=== PATIENT | male | born 1995 | race Caucasian/White ===

== ENCOUNTER 2017-08-19 15:52 | Emergency (ER) | payer OTHER ==
[~2017-08-19] VITALS: Ht 180.3 cm; Wt 106.5 kg
[2017-08-19 16:32] LABS: HEMATOCRIT 44.8 % (38.0-50.0); MCH 28.8 PG (29.0-34.0); MCHC 33.5 G/DL (30.0-36.0); MCV 86.2 FL (86-99); RBC DIS.WIDTH-CV 12.2 % (11.8-14.6); RBC DIS.WIDTH-SD 38.7 % (39-53); WHITE BLOOD COUNT 13.7 K/uL (4.1-10.2)
[2017-08-19 16:46] LABS: CHLORIDE 107 mEq/L (99-109); POTASSIUM 4.5 mEq/L (3.7-5.4); SODIUM 140 mEq/L (136-147)
[2017-08-19 16:47] LABS: GLUCOSE 130 mg/dL (70-99)
[2017-08-19 16:52] LABS: GFR ESTIMATE (CALCULATED) > 59 mL/min/ (58.99-99999); UREA NITROGEN (BUN) 17 mg/dL (9-23)
[2017-08-19 17:13] LABS: PLAT.SUFFICIENCY ADEQUATE
[2017-08-19 17:31] LABS: PLATELET COUNT 279 K/uL (156-360)
[2017-08-19 18:35] LABS: APPEARANCE CLEAR ((CLEAR)); BILIRUBIN NEGATIVE; BLOOD LARGE; COLOR YELLOW ((YELLOW)); GLUCOSE (STRIP) NEGATIVE; KETONES NEGATIVE; LEUKOCYTES NEGATIVE; NITRITE NEGATIVE; PROTEIN (STRIP) NEGATIVE; UROBILINOGEN 0.2 MG/DL (0.2-1.0)
[2017-08-19 18:55] LABS: BACTERIA NONE SEEN /HPF; EPITHELIAL CELLS NONE SEEN /HPF; MUCUS 2+ /LPF; RED BLOOD CELLS TNTC /HPF (0-5); UCUL ADDED? YES; WHITE BLOOD CELLS 0-5 /HPF (0-5)
[2017-08-19] MEDS ORDERED: CIPRO500 MG PO (19:15)
[2017-08-19] MEDS ORDERED: FLOMAX0.4 MG PO (19:15)
[2017-08-19] MEDS ORDERED: ZOFRAN4 MG PO (19:15)
[2017-08-19] MEDS ORDERED: PERCOCET 5/31 TABLET PO (19:16)
[2017-08-19 19:59] VITALS: BP 105/65
== END 2017-08-19 20:01 | disposition home or self-care (01) ==
LOC: EME 15:52
DX: N13.2 Hydronephrosis with renal and ureteral calculous obstruction (principal); R11.2 Nausea with vomiting, unspecified
CPT/HCPCS: 74176; 80048; 81003; 85027; 87086; 99281; 99285; J1885; J2405; J7030